=== PATIENT | female | born 1995 | race Caucasian/White ===

== ENCOUNTER 2019-12-31 11:25 | Emergency (ER) | payer OTHER, SELFPAY ==
[2019-12-31 11:37] VITALS: BP 102/67; PULSE 62; RESP 16; TEMP 37.2; O2SAT 100
--- NOTE | 2019-12-31 11:38 | ED.GENADULT ---
HPI - General Adult General Chief complaint: Extremity Injury, Lower Stated complaint: left knee pain Time Seen by Provider: 12/31/19 11:40 Source: patient and RN notes reviewed Mode of arrival: ambulatory Limitations: no limitations History of Present Illness HPI narrative: This is a 24 years old female presents to the office for an evaluation of left knee pain since yesterday. She woke up with pain. Pain is constant and worse with weightbearing. Denies recent injury or trauma that she recalls. She just started to exercise and walking around her neighborhood for the last 2 to 3 weeks after being off for 5 months. Pain is tolerable with Advil. Denies any other associated symptoms such as fever, congestion, nausea/vomiting, or feeling weak. Denies insect bite. Related Data Home Medications Medication Instructions Recorded Confirmed escitalopram oxalate mg 12/31/19 Allergies Allergy/AdvReac Type Severity Reaction Status Date / Time Penicillins Allergy Unknown Verified 05/16/18 08:50 Review of Systems Review of Systems: Narrative: CONSTITUTIONAL: Denies fever or feeling ill CARDIOVASCULAR: Denies chest pain, palpitation RESPIRATORY: Denies dyspnea GASTROINTESTINAL: Denies abdominal pain, nausea, vomiting GENITOURINARY: Denies urinary symptoms SKIN: Denies rash MUSCULOSKELETAL: Reports left knee pain and feel swollen NEUROLOGIC: Denies lightheaded/dizziness All other systems reviewed are negative, except as documented in HPI. [facility] Past Medical History Medical History (Updated 12/31/19 @ 11:53 by TWYLA Shelby) Anxiety and depression Migraine Social History Social History Smoking status: Current every day smoker Alcohol intake: current Gender identity (if verbalized by the patient): Female Comments At time of signature, I agree with nursing past medical, surgical, social and family history. There is no relevant family history pertinent to the presenting complaint. Exam Narrative: Exam Narrative: GENERAL: This is a well-nourished, well-developed patient, in no apparent distress. CARDIOVASCULAR: Regular rate and rhythm without murmurs, gallops, or rubs. RESPIRATORY: Clear to auscultation. Breath sounds equal bilaterally. No wheezes, rales, or rhonchi. GASTROINTESTINAL: Abdomen soft, non-tender, nondistended. Bowel sounds are active. No hepato-splenomegaly, or palpable masses. No guarding. SKIN: warm, intact with no suspicious lesions or rash, good texture and turgor. NEURO: awake, alert, and oriented to person, place and time. There were no obvious focal neurologic abnormalities. EXTREMITIES: Patient is able to bear weight and ambulate crutches. No surface of trauma or obvious effusion. No overlying erythema or warmth. The Right knee is without obvious asymmetry or deformity when comparing to the left. Patient is able fully extended knee; but limited on flexsion and internal and external rotation. Nontender to palpate of the patella, no effusion. Nontender over the infrapatellar tendon. Nontender over the medial or lateral joint line, or medial or lateral tibial plateaus. Nontender over the proximal fibular head. Nontender, fullness, or mass of the popliteal fossa. NO quadriceps tenderness. Distal motor and neurovascular status intact. SKIN intact. Course Vital Signs Vital signs: Vital Signs Temperature 98.9 F 12/31/19 11:37 Pulse Rate 62 12/31/19 11:37 Respiratory Rate 16 12/31/19 11:37 Blood Pressure 102/67 12/31/19 11:37 Pulse Oximetry 100 12/31/19 11:37 Temperature 98.9 F 12/31/19 11:37 Pulse Rate 62 12/31/19 11:37 Respiratory Rate 16 12/31/19 11:37 Blood Pressure 102/67 12/31/19 11:37 Pulse Oximetry 100 12/31/19 11:37 Medical Decision Making MDM Narrative Medical decision making narrative: Pain is likely result from over use discussed with patient, no x-ray is indicated however if patient in
== END 2019-12-31 11:58 | disposition home or self-care (01) ==
PROVIDERS: Emergency Provider Nurse Practitioner
DX: M25.562 Pain in left knee (principal); F41.8 Other specified anxiety disorders; F17.200 Nicotine dependence, unspecified, uncomplicated
CPT/HCPCS: 99212; G0463

== ENCOUNTER 2020-04-08 12:44 | Outpatient (CLI) | payer OTHER, SELFPAY ==
--- NOTE | 2020-04-16 12:18 | WPDHOLTEREM ---
Holter/Event Monitor Holter/Event Monitor Date of procedure: 04/08/20 Procedure Type: 48 hour holter monitor Indications: Bradycardia Conclusion: 1. 48 hour holter monitor on 04/08/20. 2. Underlying rhythm is sinus rhythm. HR range 35-135 bpm; average HR 67 bpm. 3. There are 2 premature supraventricular complexes and 6 supraventricular couplets. No supraventricular tachycardia. 4. No premature ventricular complex. No ventricular tachycardia. 5. No sinoatrial or atrioventricular blocks. No significant pauses greater than 2 seconds. 6. No symptoms available for correlation.
== END 2020-04-08 12:45 | disposition home or self-care (01) ==
PROVIDERS: PCP Family Medicine; Visit Provider Family Medicine
DX: R00.1 Bradycardia, unspecified (principal)
CPT/HCPCS: 93225; 93226

== ENCOUNTER 2020-04-22 07:28 | Emergency (ER) | payer OTHER, SELFPAY ==
--- NOTE | ~2020-04-22 | US_ITS ---
EXAMINATION: US pelvic complete w TV DATE: 04/22/2020 10:23 INDICATION: Sudden onset left pelvic pain TECHNIQUE: Multiple transabdominal and endovaginal sonographic images of the pelvis were obtained. COMPARISON: None. FINDINGS: The uterus measures 9.4 x 5.0 x 5.4 cm. The endometrial complex measures 10 mm in thickness. The rig ht ovary measures 3.0 x 2.0 x 3.0 cm. The left ovary measures 3.3 x 1.4 x 1.7 cm. There is normal vas cular flow with both arterial and venous waveforms identified in both ovaries. There is small amount of likely physiologic anechoic free fluid in the cul-de-sac and at the right adnexa. IMPRESSION: 1. Normal pelvic ultrasound. Reviewed, dictated and finalized at location B.
--- NOTE | ~2020-04-22 | CT_ITS ---
EXAMINATION: CT abdomen pelvis w con INDICATION: Pelvic pain TECHNIQUE: Computed tomographic images of the abdomen and pelvis were obtained after the administrati on of 100 cc of Omnipaque 350 intravenous contrast. The dose-length product (DLP) was 268.38 mGy-cm. Automated exposure control and iterative reconstruction technique were employed. COMPARISON: None available FINDINGS: The lung bases are clear. The heart size is normal. Punctate calcifications in otherwise no rmal appearing liver and spleen likely represent healed granulomatous disease. The pancreas, gallblad teri, and adrenal glands are normal. The kidneys are unremarkable. No pathologically enlarged abdomina l or pelvic lymph nodes are identified. There is no free intraperitoneal gas or evidence of bowel obs truction. The appendix is normal. There is a small volume of fluid in the cul-de-sac. A corpus luteum is noted in the left ovary. The visualized osseous structures are unremarkable. IMPRESSION: 1. Small amount of free fluid in the pelvis which is likely physiologic or possibly due to a ruptured ovarian cyst. Reviewed, dictated and finalized at location A. IMPRESSION: 1. Small amount of free fluid in the pelvis which is likely physiologic or poss ibly due to a ruptured ovarian cyst.
[2020-04-22 07:31] VITALS: BP 119/77; PULSE 80; RESP 18; TEMP 36.4; O2SAT 100
--- NOTE | 2020-04-22 07:57 | ED.ABDPAIN ---
HPI - Abdominal Pain General Chief Complaint: Abdominal Pain Stated Complaint: PELVIC PAIN Time Seen by Provider: 04/22/20 07:31 Source: patient and family Mode of arrival: ambulatory Limitations: no limitations History of Present Illness HPI narrative: 24 years old white female presents with gradual onset of pain lower abdomen bilaterally started this morning. Patient denies any nausea, vomiting, diarrhea, constipation, fever, chills, vaginal bleeding. Reports some vaginal discharge for a while. Patient denies similar symptoms, or history of abdominal surgery., Last menstrual cycle 1 week ago. Patient denies radiation of pain. Patient does smoke use marijuana and does not drink Related Data Allergies Allergy/AdvReac Type Severity Reaction Status Date / Time Penicillins Allergy Unknown Unknown Verified 04/22/20 07:36 Review of Systems Review of Systems: Narrative: CONSTITUTIONAL: Denies fever, chills, or sweats. EYES: Denies visual changes, redness, or discharge. ENT: Denies rhinorrhea, congestion, sore throat, or otalgia. CARDIOVASCULAR: Denies chest pain, palpitations, or edema. RESPIRATORY: Denies cough or dyspnea. GASTROINTESTINAL: Denies abdominal pain, nausea, vomiting, or diarrhea. GENITOURINARY: Denies dysuria or hematuria. SKIN: Denies rash or itching. MUSCULOSKELETAL: Denies back pain, joint pain, or myalgia. NEUROLOGIC: Denies headache, numbness, or weakness. PSYCHIATRIC: Denies anxiety or depression. PMFSH Past Medical History Medical History (Updated 04/22/20 @ 11:30 by Erica Omalley MD) Anxiety and depression Migraine Social History Social History Smoking status: Current every day smoker Alcohol intake: current Gender identity (if verbalized by the patient): Female Sexual Orientation (if Verbalized by the Patient): Straight or Heterosexual Exam Narrative: Exam Narrative: General appearance: Well-developed, well-nourished, looks in pain, family member at the bedside Skin: Normal color Head: Normocephalic, nontraumatic Eyes: Clear conjunctiva ENT: Oropharynx normal, ears normal, nose normal Neck: Supple, nontender Chest and respiratory: Airway patent, no respiratory distress, no accessory muscle use Heart: Regular rate/rhythm Abdomen: Soft, severe diffuse tenderness lower abdomen across. Positive guarding, no rebound Vascular: Normal peripheral pulses, normal capillary refill. Musculoskeletal: Normal range of motion, nontender back Neurologic: Alert and oriented ?3, [employer] is normal as tested, no gross motor deficit Course Course Emergency Course: Stable Reevaluation(s) Reevaluation #1: Patient feeling much better, very low protein At the time of discharge patient's mother told me that patient need narcotics because she cannot even sit in bed. I did offer hospitalization for 24 hours for pain management, the patient and her mom declined. I added tramadol 50 mg every 4 hours as needed for pain plus ibuprofen at the time of discharge. Vital Signs Vital signs: Vital Signs Temperature 36.4 C 04/22/20 07:31 Pulse Rate 80 04/22/20 07:31 Respiratory Rate 18 04/22/20 07:31 Blood Pressure 119/77 04/22/20 07:31 Pulse Oximetry 100 04/22/20 07:31 Temperature 36.4 C 04/22/20 07:31 Pulse Rate 88 04/22/20 10:19 Respiratory Rate 18 04/22/20 10:19 Blood Pressure 124/64 04/22/20 10:19 Pulse Oximetry 100 04/22/20 10:19 MDM - Abdominal Pain MDM Narrative Medical decision making narrative: Patient presents with abdominal pain, work-up showed that patient had possible ruptured ovarian cyst, pelvic ultrasound ruled out the possibility of t
[2020-04-22] MEDS: ONDANSETRON INJ 4 MG/2 ML VIAL IV PUSH (08:19)
[2020-04-22] MEDS: SODIUM CHLORIDE 0.9% IV 1,000 ML 999 ML IV CONT ×2 (08:19)
[2020-04-22] MEDS: MORPHINE SULFATE (*CRX) 4 MG/ML INJ IV PUSH (08:19)
[2020-04-22 08:39] LABS: Basophils Percent Auto 0.5 % (0.2-1.2); Eosinophils Absolute Auto 0.1 K/mm3 (0-0.3); Eosinophils Percent Auto 1.1 % (0-4.4); Hematocrit 37.7 % (37.0-47.0); Hemoglobin 12.3 g/dL (12.0-15.0); Immature Granulocyte Absolute 0.04 K/mm3 (0.00-0.031); Immature Granulocyte Percent A 0.5 % (0-0.5); Lymphocytes Absolute Auto 1.88 K/mm3 (0.9-3.2); Lymphocytes Percent Auto 21.5 % (18.3-44.2); Mean Corpuscular HGB Conc 32.6 g/dl (32-36); Mean Corpuscular Hemoglobin 28.5 pg (26-34); Mean Corpuscular Volume 87.3 fl (80-100); Mean Platelet Volume 9.7 fl (7.4-10.4); Monocytes Absolute Auto 0.9 K/mm3 (0.1-0.6); Neutrophils Absolute Auto 5.8 K/mm3 (1.3-6.7); Neutrophils Percent Auto 66.4 % (45.5-73.1); Platelet Count Result 355 k/mm3 (150-375); Red Blood Count 4.32 M/mm3 (4.2-5.4); Red Cell Distribution Width 14.6 % (11.5-14.5); White Blood Count 8.7 K/mm3 (4.5-10.0)
[2020-04-22 08:46] LABS: Add Urine Microscopic? YES; Appearance Urine Clear (Clear); Bacteria Urine Trace /hpf; Bilirubin Urine Negative (Negative); Blood Urine Negative (Negative); Color Urine Yellow (Yellow); Glucose Urine UA Negative (Negative); Ketones Urine Negative (Negative); Leukocyte Esterase Ur Trace LEU/UL (Negative); Mucus Urine Rare /lpf; Nitrate Urine Negative (Negative); Protein Urine Negative (Negative); RBC Urine 0-2 /hpf (0-2); Squamous Epithelial Cell Urine Many /hpf (Few); Urobilinogen Urine Negative mg/dL (<2.0); WBC Urine 0-3 /hpf
[2020-04-22 08:48] LABS: Alanine Aminotransferase 22 U/L (4-35); Alkaline Phosphatase 64 U/L (38-126); Anion Gap 7 mmol/L (8-16); Aspartate Amino Transferase 27 U/L (14-36); Bilirubin,Total 0.3 mg/dL (0.2-1.3); Blood Urea Nitrogen 8 mg/dL (7-17); Calcium 9.4 mg/dL (8.4-10.2); Carbon Dioxide 27 mmol/L (22-30); Chloride 107 mmol/L (98-107); Estimated CRCL calculation 124 ml/min; Estimated Glomerular Filt Rate > 60; Glucose 98 mg/dL (65-105); Lipase 85 U/L (23-300); Potassium 4.1 mmol/L (3.4-5.0); Sodium 141 mmol/L (137-145)
--- NOTE | 2020-04-22 09:30 | PC.NURSE ---
Pt in CT at this time
[2020-04-22] MEDS: KETOROLAC 30 MG/ML VIAL (*BKC) IV PUSH (10:18)
[2020-04-22 10:19] VITALS: BP 124/64; PULSE 88; RESP 18; O2SAT 100
[2020-04-22 12:49] VITALS: BP 132/78; PULSE 70; RESP 18; O2SAT 98
== END 2020-04-22 12:51 | disposition home or self-care (01) ==
PROVIDERS: Emergency Provider Emergency Medicine; PCP Family Medicine
DX: N83.209 Unspecified ovarian cyst, unspecified side (principal); R10.30 Lower abdominal pain, unspecified; F17.200 Nicotine dependence, unspecified, uncomplicated
CPT/HCPCS: 36415; 74177; 76830; 76856; 80053; 81001; 83690; 85025; 96361; 96374; 96375; 99284; J1885; J2270; J2405; J7030; Q9967

== ENCOUNTER 2020-08-15 10:52 | Emergency (ER) | payer OTHER, SELFPAY ==
[2020-08-15 11:09] VITALS: BP 126/56; PULSE 71; RESP 18; TEMP 36.7; O2SAT 100
--- NOTE | 2020-08-15 11:11 | ED.GENADULT ---
HPI - General Adult General Chief complaint: Extremity Injury, Lower Stated complaint: Swollen Foot Time Seen by Provider: 08/15/20 11:08 Source: patient and RN notes reviewed Mode of arrival: ambulatory Limitations: no limitations History of Present Illness HPI narrative: 24-year-old female presents with complaints of intermittent left foot and 2nd toe pain and swelling for the past 1-1.5 months. Pari reports similar episode about 10 months ago in which she sought care for, this episode is constant and symptoms are increasing with popping sounds with movement and stretching, tenderness, and swelling. Ibuprofen, last on 08/14/20 without relief. Denies injury. Denies history of CHF, DVT, PE, or gout. Hurts to bear weight. Pain radiates from second toe into foot. No numbness, tingling, or loss of mobility. Exacerbating factor applying weight. Denies inability to bear weight. Denies drainage, discoloration, or suspect foreign body. Denies fever or chills. Denies chest pain and shortness of breath. LMP 4 weeks ago. Remains active. The patient reports she have not been diagnosed with COVID-19. The patient reports she is not waiting for the results of a COVID-19 lab test. The patient reports she do not have weakness or fatigue. The patient reports she do not have a new or worsening cough or shortness of breath. The patient reports she do not have any rhinorrhea, congestion, sore throat, loss of taste or smell, nausea, vomiting, abdominal pain, and diarrhea. Tolerating po intake well. Denies recent traveling. Denies concerns for COVID-19 or exposures been home with limited outdoor exposure except for essential household needs, working from home, and return home. At this time, patient is not suspected of having COVID-19. Some parts of this dictation were generated by voice recognition software and may contain typographical and/or grammatical inaccuracies. Related Data Allergies Allergy/AdvReac Type Severity Reaction Status Date / Time Penicillins Allergy Unknown Hives Verified 08/15/20 11:03 Review of Systems Review of Systems: Narrative: CONSTITUTIONAL: Denies fever, chills, sweats. EYES: Denies visual changes, redness, discharge. ENT: Denies rhinorrhea, congestion, sore throat, otalgia. CARDIOVASCULAR: Denies chest pain, palpitations, edema. RESPIRATORY: Denies dyspnea, wheezing, cough. GASTROINTESTINAL: Denies abdominal pain, nausea, vomiting, diarrhea. SKIN: Denies rash or itching. MUSCULOSKELETAL: Denies acute back pain or myalgia. Complaints of intermittent left foot and 2nd toe pain and swelling. Denies drainage. NEUROLOGIC: Denies numbness or focal weakness. PSYCHIATRIC: Denies anxiety or depression. All systems reviewed & are unremarkable except as noted in HPI and below. PMFSH Past Medical History Medical History (Updated 08/15/20 @ 12:10 by TWYLA Rosario) Anxiety and depression Migraine Normal vaginal delivery X3 Surgical History Surgical History (Updated 08/15/20 @ 12:10 by TWYLA Rosario) No significant past surgical history Family History Family History (Updated 08/15/20 @ 12:13 by TWYLA Rosario) Father Heart disease surgery Diabetes mellitus Hypertension Mother Diabetes mellitus Obsessive compulsive personality disorder Social History Social History (Updated 08/15/20 @ 12:14 by TWYLA Rosario) Smoking packs per day: 0.5 Smoking cigarettes per day: 10.0 Years smoked: 10 Smoking pack-years: 5.00 Smoking status: Current every day smoker Tobacco type: cigarettes Second hand tobacco smoke exposure: Yes Alcohol intake: former Substance use: never Substance use type: does not use Living arrangements: with family Occupation/Education: occupation Gender identity (if verbalized by the patient): Female Sexual Orientation (if Verbalized by the Patient): Straight or Heterosexual Comments At time of signature,
== END 2020-08-15 11:34 | disposition home or self-care (01) ==
PROVIDERS: Emergency Provider Nurse Practitioner Family
DX: M79.89 Other specified soft tissue disorders (principal); M25.572 Pain in left ankle and joints of left foot; F17.210 Nicotine dependence, cigarettes, uncomplicated
CPT/HCPCS: 99213; G0463

== ENCOUNTER 2022-10-01 16:30 | Emergency (ER) | payer OTHER, SELFPAY ==
--- NOTE | ~2022-10-01 | XR_ITS ---
XR hand RT min 3V DATE: 10/01/2022 16:51 INDICATION: Generalized hand pain after punching a wall yesterday TECHNIQUE: 3 views of right hand COMPARISON: None FINDINGS: No fracture or dislocation, periosteal reaction or bone destruction. IMPRESSION: Negative Reviewed, dictated and finalized at location A. IMPRESSION: Negative
--- NOTE | 2022-10-01 16:34 | ED.UPPEXIN ---
HPI - Extremity Injury (Upper) General Chief Complaint: Extremity Injury, Upper Stated Complaint: right hand injury Time Seen by Provider: 10/01/22 17:08 Source: patient and RN notes reviewed Mode of arrival: ambulatory Limitations: no limitations History of Present Illness HPI narrative: 26-year-old female presents with concern for injury to right hand. Reports last night while she was intoxicated she punched a porch. She reports when she woke up today the hand was painful, swollen itchy had abrasions. She denies any intervention. MD complaint: injury to: right and hand Related Data Allergies Allergy/AdvReac Type Severity Reaction Status Date / Time Penicillins Allergy Unknown Hives Verified 10/01/22 16:49 Review of Systems Review of Systems: CONSTITUTIONAL: Denies malaise, chills, sweats, or fever. SKIN: Denies rash or itching, warmth MUSCULOSKELETAL: Reports right hand pain, swelling, abrasions NEUROLOGIC: Denies numbness, weakness All systems reviewed & are unremarkable except as noted in HPI and below PMFSH Past Medical History Medical History (Updated 10/01/22 @ 17:17 by Doris Peña NP) Anxiety and depression Migraine Normal vaginal delivery X3 Surgical History Surgical History (Updated 08/15/20 @ 12:10 by TWYLA Rosario) No significant past surgical history Family History Family History (Updated 08/15/20 @ 12:13 by TWYLA Rosario) Father Heart disease surgery Diabetes mellitus Hypertension Mother Diabetes mellitus Obsessive compulsive personality disorder Social History Social History (Updated 08/15/20 @ 12:14 by TWYLA Rosario) Smoking packs per day: 0.5 Smoking cigarettes per day: 10.0 Years smoked: 10 Smoking pack-years: 5.00 Smoking status: Current every day smoker Tobacco type: cigarettes Second hand tobacco smoke exposure: Yes Alcohol intake: former Substance use: never Substance use type: does not use Living arrangements: with family Occupation/Education: occupation Gender identity (if verbalized by the patient): Female Sexual Orientation (if Verbalized by the Patient): Straight or Heterosexual Comments At time of signature, agree with nursing past medical, surgical, social and family history. There is no relevant family history pertinent to the presenting complaint Exam Narrative: GENERAL: Well-appearing, well-nourished, and in no acute distress. HEAD: Normocephalic EYES: PERRLA, conjunctivae clear NECK: Supple. CHEST: Speaks in full sentences. No respiratory distress. HEART: Regular rate and rhythm. Normal and equal peripheral pulses. EXTREMITIES: Right hand and digits of hand have normal strength and sensation. 5/5 strength with digit flexion, extension. Range of motion grossly normal. No clubbing, cyanosis. Moderate distal hand dorsal edema noted. Generalized hand tenderness. Normal digital cascade with flexion of fingers, median, ulnar and radial nerve intact. Normal sensation of each side of finger. Can perform 'okay' sign, 'cross over finger test of index and middle fingers' and 'thumbs up' sign. No scissoring. Normal thumb opposition. Good capillary refill and radial pulse. Distal capillary refill less than 3 seconds. SKIN: Warn, dry, intact, pink. Scabbed abrasions noted to the dorsal hand at the knuckles NEURO: Alert and oriented x3. PSYCH: Normal mood and affect Course Course Emergency Course: Patient is aware of diagnosis, understands and agrees to treatment plan. Anticipatory guidance given. Patient agrees to follow-up as directed and is aware of reasons to seek care at the emergency department. Portions of this record may have been created with voice recognition software Level of Care: Express Care Visit Vital Signs Vital signs: Reviewed. MDM - Extremity Injury (Upper) MDM Narrative Medical decision making narrative: Patients injury and pain is consistent with musculoskeletal etiolo
[2022-10-01 16:37] VITALS: BP 113/67; PULSE 79; RESP 16; TEMP 37.1; O2SAT 99
== END 2022-10-01 17:28 | disposition home or self-care (01) ==
PROVIDERS: Emergency Provider Nurse Practitioner
DX: S63.91XA Sprain of unspecified part of right wrist and hand, initial encounter (principal); F17.210 Nicotine dependence, cigarettes, uncomplicated; W22.09XA Striking against other stationary object, initial encounter
CPT/HCPCS: 73130; 99213; G0463

== ENCOUNTER 2023-02-23 11:47 | Emergency (ER) | payer OTHER, SELFPAY ==
--- NOTE | 2023-02-23 11:48 | ED.URI ---
HPI - URI/Sore Throat General Chief Complaint: Upper Respiratory Infection Stated Complaint: throat pain Time Seen by Provider: 02/23/23 11:48 Source: patient Mode of arrival: ambulatory Limitations: no limitations History of Present Illness HPI Narrative: Pari is a 27-year-old female patient presenting to clinic today with complaints of a sore throat and headache x 3 days. She reports she had a low-grade fever on the 1st day. No known exposure to anybody with COVID, flu, or strep. She denies any other symptoms. MD elicited complaint: sore throat Related Data Allergies Allergy/AdvReac Type Severity Reaction Status Date / Time Penicillins Allergy Unknown Hives Verified 02/23/23 12:07 Review of Systems Review of Systems: Pertinent positives per HPI. Patient denies any fever, chills, rash, headache, visual changes, dizziness, cough, shortness of breath, chest pain, palpitations, nausea, vomiting, diarrhea, constipation, abdominal pain, or any urinary issues. PMFSH Past Medical History Medical History Anxiety and depression Migraine Normal vaginal delivery X3 Surgical History Surgical History No significant past surgical history Family History Family History Father Heart disease surgery Diabetes mellitus Hypertension Mother Diabetes mellitus Obsessive compulsive personality disorder Social History Social History Smoking packs per day: 0.5 Smoking cigarettes per day: 10.0 Years smoked: 10 Smoking pack-years: 5.00 Smoking status: Current every day smoker Tobacco type: cigarettes Second hand tobacco smoke exposure: Yes Alcohol intake: former Substance use: never Substance use type: does not use Living arrangements: with family Occupation/Education: occupation Gender identity (if verbalized by the patient): Female Sexual Orientation (if Verbalized by the Patient): Straight or Heterosexual Comments At the time of my signature, I reviewed and agree with the nursing past medical, surgical, social, and family history. There is no relevant family history pertinent to the patient complaint. Exam Narrative: General: Well-developed, well nourished, in no apparent distress Head: Normocephalic, atraumatic Eyes: Pupils equally round and reactive to light bilaterally, EOM intact, sclera and conjunctive clear, no discharge, lids normal Ears: TMs intact and clear, ear canals clear, no drainage, grossly hearing normal. Nose: Nares patent, no discharge, no inflammation, no sinus tenderness. Mouth: Oral pharynx red with bilateral tonsillar enlargement with exudate without lesions or masses, good dentition, MMM. Neck: Supple, trachea midline, enlargement of anterior cervical nodes, no thyroid masses or goiter palpable. Cardio: Regular rate and rhythm, s1 and s2 normal, no murmur appreciated. Resp: Clear to auscultation bilaterally, no rhonchi, rales, wheezing or rubs Course Course Emergency Course: Portions of this record may have been created with voice recognition software. Level of Care: Express Care Visit Vital Signs Vital signs: Vital signs reviewed MDM - URI/Sore Throat MDM Narrative Medical decision making narrative: At the time of visit patient is resting comfortably on the exam table. Strep screen was obtained and was positive in the clinic today. Will send in prescription for azithromycin as the patient has allergies to penicillins. Supportive measures were discussed with the patient she voiced understanding discharge instructions and agrees to treatment plan. Differential Diagnosis Differential diagnosis: Likely upper respiratory infection, otitis media, sinusitis, viral infection, bronchitis, influenza, ph
[2023-02-23 12:10] VITALS: BP 129/64; PULSE 74; RESP 18; TEMP 37.3; O2SAT 100
== END 2023-02-23 12:38 | disposition home or self-care (01) ==
PROVIDERS: Emergency Provider Nurse Practitioner Family; PCP Emergency Medicine
DX: J02.0 Streptococcal pharyngitis (principal); F17.210 Nicotine dependence, cigarettes, uncomplicated
CPT/HCPCS: 87880; 99213; G0463

== ENCOUNTER 2023-07-05 15:55 | Emergency (ER) | payer OTHER, SELFPAY ==
[2023-07-05 16:11] VITALS: BP 106/55; PULSE 70; RESP 16; TEMP 37.1; O2SAT 100
--- NOTE | 2023-07-05 17:31 | ED.GENADULT ---
HPI - General Adult General Chief complaint: Ear Stated complaint: Right Ear Irritation Time Seen by Provider: 07/05/23 17:31 Source: patient, RN notes reviewed and old records reviewed Mode of arrival: ambulatory Limitations: no limitations History of Present Illness HPI narrative: 27-year-old test in the [facility] with complaints of right ear pain since yesterday. Denies any other symptoms. No treatment prior to arrival Onset (ago): day(s) (1) Related Data Allergies Allergy/AdvReac Type Severity Reaction Status Date / Time Penicillins Allergy Unknown Hives Verified 07/05/23 17:05 Review of Systems Review of Systems: All systems reviewed & are unremarkable except as noted in HPI and below Constitutional: Constitutional: Reports no additional constitutional complaints Eyes: Eyes: Reports no additional eye complaints ENT: Reports as per HPI and Reports otalgia (Right) Cardiovascular: Cardiovascular: Reports no additional cardiovascular complaints, Denies chest pain and Denies dyspnea Respiratory: Respiratory: Reports no additional respiratory complaints, Denies chest congestion, Denies cough and Denies dyspnea Gastrointestinal: Gastrointestinal: Reports no additional gastrointestinal complaints, Denies abdominal pain, Denies nausea and Denies vomiting Musculoskeletal: Musculoskeletal: Reports no additional musculoskeletal complaints Integumentary/Breasts: Skin/Breast: Reports system reviewed and no additional complaints, except as docu Neurologic: Reports system reviewed and no additional complaints, except as documented Psychiatric: Psychiatric: Reports no additional psychiatric complaints Allergic/Immunologic: Allergic/Immunologic: Reports no additional allergic/immunologic complaints PMFSH Past Medical History Medical History Anxiety and depression Migraine Normal vaginal delivery X3 Surgical History Surgical History No significant past surgical history Family History Family History Father Heart disease surgery Diabetes mellitus Hypertension Mother Diabetes mellitus Obsessive compulsive personality disorder Social History Social History Smoking packs per day: 0.5 Smoking cigarettes per day: 10.0 Years smoked: 10 Smoking pack-years: 5.00 Smoking status: Current every day smoker Tobacco type: cigarettes Second hand tobacco smoke exposure: Yes Alcohol intake: former Substance use: never Substance use type: does not use Living arrangements: with family Occupation/Education: occupation Gender identity (if verbalized by the patient): Female Sexual Orientation (if Verbalized by the Patient): Straight or Heterosexual Comments At the time of my signature, I reviewed and agree with the nursing past medical, surgical, social, and family history. There is no relevant family history pertinent to the patient complaint. Exam Const: General: cooperative, healthy appearing, comfortable, no acute distress, well developed, alert and well nourished Nutritional Appearance: well nourished Orientation/consciousness: patient oriented x3 Limitations: no limitations HENMT: Head: normal to inspection Ears: hearing grossly normal bilaterally, external ears normal, mastoids normal, no periauricular adenopathy and TM abnormal bulging on the right and erythematous on the right Face/Nose/Sinus: Normal external nose present, Normal nares present, Normal nasal mucous membranes and turbinates present, normal facial exam and face symmetric Face and sinus: normal facial exam and face symmetric Mouth: Yes Normal oral and palatal mucosa present, Yes lip normal and Yes moist mucous membranes Throat: posterior oropharynx normal and uvula midline Eyes: General: appearance no
== END 2023-07-05 17:45 | disposition home or self-care (01) ==
PROVIDERS: Emergency Provider Nurse Practitioner; PCP Emergency Medicine
DX: H66.91 Otitis media, unspecified, right ear (principal); F17.210 Nicotine dependence, cigarettes, uncomplicated
CPT/HCPCS: 99211; G0463